=== PATIENT | male | born 1990 | race Caucasian/White ===

== ENCOUNTER 2017-10-30 11:56 | Emergency (ER) | payer MEDICAID ==
[~2017-10-30] VITALS: Ht 160 cm; Wt 70.0 kg
[2017-10-30 11:58] VITALS: Ht 160 cm; Wt 70.0 kg
[2017-10-30 13:10] VITALS: BP 130/74
== END 2017-10-30 13:10 | disposition home or self-care (01) ==
LOC: ED 11:56
DX: M54.12 Radiculopathy, cervical region (principal); M79.601 Pain in right arm; F17.210 Nicotine dependence, cigarettes, uncomplicated
CPT/HCPCS: 99406

== ENCOUNTER 2018-07-12 11:35 | Emergency (ER) | payer SELFPAY ==
[~2018-07-12] VITALS: Ht 157.5 cm; Wt 71.7 kg
[2018-07-12 11:41] VITALS: BP 138/75; Ht 157.5 cm; Wt 71.7 kg
== END 2018-07-12 13:26 | disposition home or self-care (01) ==
LOC: ED 11:35
DX: S01.01XA Laceration without foreign body of scalp, initial encounter (principal); F17.210 Nicotine dependence, cigarettes, uncomplicated; W22.8XXA Striking against or struck by other objects, initial encounter; Y93.89 Activity, other specified; Y92.89 Other specified places as the place of occurrence of the external cause; Y99.8 Other external cause status
CPT/HCPCS: J2001

== ENCOUNTER 2018-07-19 08:12 | Emergency (ER) | payer SELFPAY ==
[~2018-07-19] VITALS: Ht 160 cm; Wt 71.7 kg
[2018-07-19 08:21] VITALS: Ht 160 cm; Wt 71.7 kg
[2018-07-19 09:03] VITALS: BP 142/79
== END 2018-07-19 09:03 | disposition home or self-care (01) ==
LOC: ED 08:12
DX: S01.01XD Laceration without foreign body of scalp, subsequent encounter (principal); X58.XXXD Exposure to other specified factors, subsequent encounter

== ENCOUNTER 2018-09-11 09:32 | Emergency (ER) | payer SELFPAY ==
[~2018-09-11] VITALS: Ht 160 cm; Wt 69.9 kg
[2018-09-11 09:39] VITALS: BP 156/94; Ht 160 cm; Wt 69.9 kg
== END 2018-09-11 10:23 | disposition home or self-care (01) ==
LOC: ED 09:32
DX: J02.8 Acute pharyngitis due to other specified organisms (principal); J06.9 Acute upper respiratory infection, unspecified
CPT/HCPCS: 87804

== ENCOUNTER 2019-12-05 07:37 | Emergency (ER) | payer BC ==
[~2019-12-05] VITALS: Ht 162.6 cm; Wt 75.5 kg
[2019-12-05 07:47] VITALS: BP 143/112; Ht 162.6 cm; Wt 75.5 kg
== END 2019-12-05 08:30 | disposition home or self-care (01) ==
LOC: ED 07:37
DX: R05 Cough (principal)